=== PATIENT | male | born 1970 | race Caucasian/White ===

== ENCOUNTER 2023-05-06 12:39 | Outpatient (CLI) | payer MEDICARE | END 2023-05-06 12:40 | disposition home or self-care (01) | LOC: LAB.N 12:39 | PROVIDERS: ATTEND Nurse Practitioner Family | DX: Z51.81 Encounter for therapeutic drug level monitoring (principal); Z79.01 Long term (current) use of anticoagulants; Z95.2 Presence of prosthetic heart valve; I48.19 Other persistent atrial fibrillation | CPT/HCPCS: 36416; 85610 ==

== ENCOUNTER 2023-06-09 16:24 | Outpatient (CLI) | payer MEDICARE | END 2023-06-09 16:25 | disposition home or self-care (01) | LOC: LAB.N 16:24 | DX: Z51.81 Encounter for therapeutic drug level monitoring (principal); Z79.01 Long term (current) use of anticoagulants; Z95.2 Presence of prosthetic heart valve; I48.19 Other persistent atrial fibrillation | CPT/HCPCS: 36416; 85610 ==

== ENCOUNTER 2023-06-23 13:22 | Outpatient (CLI) | payer MEDICARE | END 2023-06-23 13:23 | disposition home or self-care (01) | LOC: LAB.N 13:22 | DX: Z51.81 Encounter for therapeutic drug level monitoring (principal); Z79.01 Long term (current) use of anticoagulants; Z95.2 Presence of prosthetic heart valve; I48.19 Other persistent atrial fibrillation | CPT/HCPCS: 36416; 85610 ==

== ENCOUNTER 2023-07-07 12:27 | Outpatient (CLI) | payer MEDICARE | END 2023-07-07 12:28 | disposition home or self-care (01) | LOC: LAB.N 12:27 | PROVIDERS: ATTEND Nurse Practitioner Family | DX: Z51.81 Encounter for therapeutic drug level monitoring (principal); Z79.01 Long term (current) use of anticoagulants; Z95.2 Presence of prosthetic heart valve; I48.19 Other persistent atrial fibrillation | CPT/HCPCS: 36416; 85610 ==

== ENCOUNTER 2023-08-02 13:04 | Outpatient (CLI) | payer MEDICARE | END 2023-08-02 13:05 | disposition home or self-care (01) | LOC: LAB.N 13:04 | PROVIDERS: ATTEND Nurse Practitioner Family | DX: Z51.81 Encounter for therapeutic drug level monitoring (principal); Z79.01 Long term (current) use of anticoagulants; Z95.2 Presence of prosthetic heart valve; I48.19 Other persistent atrial fibrillation | CPT/HCPCS: 36416; 85610 ==

== ENCOUNTER 2023-08-30 13:35 | Outpatient (CLI) | payer MEDICARE | END 2023-08-30 13:36 | disposition home or self-care (01) | LOC: LAB.N 13:35 | PROVIDERS: ATTEND Nurse Practitioner Family | DX: Z51.81 Encounter for therapeutic drug level monitoring (principal); Z79.01 Long term (current) use of anticoagulants; Z79.52 Long term (current) use of systemic steroids; I48.19 Other persistent atrial fibrillation | CPT/HCPCS: 36416; 85610 ==

== ENCOUNTER 2023-11-01 12:07 | Outpatient (CLI) | payer MEDICARE | END 2023-11-01 12:08 | disposition home or self-care (01) | LOC: LAB.N 12:07 | PROVIDERS: ATTEND Nurse Practitioner Family | DX: Z51.81 Encounter for therapeutic drug level monitoring (principal); Z79.01 Long term (current) use of anticoagulants; Z95.2 Presence of prosthetic heart valve; I48.19 Other persistent atrial fibrillation | CPT/HCPCS: 36416; 85610 ==

== ENCOUNTER 2023-12-07 14:09 | Outpatient (CLI) | payer MEDICARE | END 2023-12-07 14:10 | disposition home or self-care (01) | LOC: LAB.N 14:09 | PROVIDERS: ATTEND Nurse Practitioner Family | DX: Z51.81 Encounter for therapeutic drug level monitoring (principal); Z79.01 Long term (current) use of anticoagulants; Z95.2 Presence of prosthetic heart valve; I48.19 Other persistent atrial fibrillation | CPT/HCPCS: 36416; 85610 ==

== ENCOUNTER 2024-01-03 12:43 | Outpatient (CLI) | payer MEDICARE | END 2024-01-03 12:44 | disposition home or self-care (01) | LOC: LAB.N 12:43 | PROVIDERS: ATTEND Nurse Practitioner Family | DX: Z51.81 Encounter for therapeutic drug level monitoring (principal); Z79.01 Long term (current) use of anticoagulants; Z95.2 Presence of prosthetic heart valve; I48.19 Other persistent atrial fibrillation | CPT/HCPCS: 36416; 85610 ==

== ENCOUNTER 2024-02-22 11:53 | Outpatient (CLI) | payer MEDICARE | END 2024-02-22 11:54 | disposition home or self-care (01) | LOC: LAB.N 11:53 | DX: Z51.81 Encounter for therapeutic drug level monitoring (principal); Z79.01 Long term (current) use of anticoagulants; I48.19 Other persistent atrial fibrillation; Z95.2 Presence of prosthetic heart valve | CPT/HCPCS: 36416; 85610 ==